=== PATIENT | male | born 1965 | race Caucasian/White ===

== ENCOUNTER 2022-08-27 11:40 | Outpatient (CLI) | payer BC | END 2022-08-27 11:41 | disposition home or self-care (01) | LOC: SCSMRI 11:40 | PROVIDERS: ATTEND Otolaryngology Plastic Surgery within the Head & Neck | DX: H91.8X9 Other specified hearing loss, unspecified ear (principal); G96.810 Intracranial hypotension, unspecified | CPT/HCPCS: 70553 ==

== ENCOUNTER 2022-09-18 16:09 | Outpatient (CLI) | payer BC | END 2022-09-18 16:10 | disposition home or self-care (01) | LOC: CT 16:09 | PROVIDERS: ATTEND Neurological Surgery | PROC: 3E0R3GC Introduction of Other Therapeutic Substance into Spinal Canal, Percutaneous Approach (ICD-10-PCS; principal; 2022-09-18) | DX: G97.1 Other reaction to spinal and lumbar puncture (principal) | CPT/HCPCS: 62272; 70450 ==